=== PATIENT | female | born 2005 | race Asian ===

== ENCOUNTER 2025-04-07 19:44 | Emergency (ER) | payer OTHER, SELFPAY ==
[2025-04-07] VITALS (21 sets, daily range): BP systolic 104–120; BP diastolic 61–82; PULSE 69–102; RESP 11–32; TEMP 36.2; O2SAT 93–100; BMI 23.5
--- NOTE | 2025-04-07 19:58 | ED.ALLEREA ---
HPI - Allergic Reaction General Time Seen by Provider: 19:58 Date Seen: 04/07/25 Chief complaint: Allergic Reaction Stated complaint: Allergic reaction Time Seen by Provider: 04/07/25 19:57 Source: patient and RN notes reviewed Mode of arrival: ambulatory Limitations: no limitations History of Present Illness HPI narrative: This 19-year-old female with a known peanut allergy was eating a spring roll. It may have been cooked in not oil as she started to react. She felt like her tongue was swelling, became itchy. She did throw up in the car in route. The emesis was after the EpiPen. She took her EpiPen about 733. She did not notice any rash ever. The itchiness has gone. She is feeling lower abdominal pain and cramping. She is not feel like she is going to throw up anymore. She has had anaphylaxis before but nothing recent, no reactions for quite some time. She is no longer feeling itching, no difficulty breathing. Maybe some slight ongoing tongue swelling. Her biggest complaint is the lower abdominal cramping. MD complaint: allergic reaction Related Data Previous Rx's ?Medication ?Instructions ?Recorded prednisone 20 mg tablet 20 mg PO BID #6 tabs 04/07/25 Allergies Allergy/AdvReac Type Severity Reaction Status Date / Time peanut Allergy Severe Anaphylaxis Verified 04/07/25 19:51 Review of Systems Status of ROS Reports: 6 or more systems reviewed and unremarkable except as noted in History and below Exam Const: Vital Signs, click to edit/add: Vital Signs - 24 hr 04/07/25 19:51 04/07/25 20:02 04/07/25 20:15 Temperature 97.1 F L Pulse Rate 91 85 Pulse Rate [Pulse Oximeter] 96 Respiratory Rate 32 H Blood Pressure [Ri ght Upper Arm] 104/61 Pulse Oximetry 99 93 93 Oxygen Delivery Me thod Room Air 04/07/25 20:30 Temperature Pulse Rate 86 Pulse Rate [Pulse Oximeter] Respiratory Rate 26 H Blood Pressure [Ri ght Upper Arm] Pulse Oximetry 100 Oxygen Delivery Me thod This 19-year-old female seen exam room 5. She is alert, interactive, speech is normal, is able to speak in complete sentences but seems uncomfortable. She is lying on her side. Pupils equal round reactive, sclera clear, conjugate gaze, symmetrical facial function, no lip swelling noted. Tongue appears normal to me, oropharynx normal and certainly no hoarseness on speech. Neck supple, no adenopathy. Lungs are clear, good air entry, no wheezing or crackles, no accessory muscle use, no tachypnea. CV regular rate and rhythm, no murmur. Abdomen is soft, complaint of lower abdominal tenderness without rebound or guarding or masses. Skin visualized without any erythema, no hives. Documenting provider has reviewed patient's vital signs: yes Course Course ED Course: Patient could be experiencing cramping from having taken epinephrine or could still be cycle of allergic reaction. Will start an IV, have her on pulse oximetry and cardiac monitoring. Will start with IV Benadryl 25 mg, famotidine 20 mg IV, 40 mg IV Solu-Medrol and some IV fluids. I would like to watch this patient closely, see if she response to these medicines. If she is not responsive to these and has ongoing lower abdominal cramping, probably more likely from epinephrine administration. Would consider treating potentially with something like Toradol or even a bit of IV Ativan to see if that might help with lower intestinal cramping. She does not seem to be in any active anaphylaxis but will continue to monitor, make sure no rebound reaction. Reevaluation(s) Time of Reevaluation #1: 20:28 Reevaluation #1: Patient is checked on, she is feeling shaky, feels cold. Did get her some blankets. Her lower abdomen is still somewhat crampy but overall improved. We will continue to observe as she is overall improving. Time of Reevaluation #2: 20:57 Reevaluation #2: Nursing staff reports patient went to get up to the bathroom and just had another emesis. Will give her some Zofran. Time of Reevaluation #3: 21:08 Reevaluation #3: Patient is now feeling much better, wanting to drink. Reviewed that we do need to watch her, would advocate probably a 4 hour window since she did just recently have an emesis. Since the emesis, she is feeling back to baseline. It is possible that she did vomit the rest of the contents of the potential allergen. Patient states she does not need a refill of her EpiPen, she has another 1 at home and does have refills on the prescription. Vital Signs Vital signs: Initial Vital Signs Temperature 97.1 F L 04/07/25 19:51 Temperature Source Temporal Artery Scan 04/07/25 19:51 Pulse Rate 96 04/07/25 19:51 Respiratory Rate 32 H 04/07/25 19:51 Blood Pressure 104/61 04/07/25 19:51 Blood Pressure Mean 75 04/07/25 19:51 Blood Pressure Position Semi-Fowlers 04/07/25 19:51 Pulse Oximetry 99 04/07/25 19:51 Oxygen Delivery Method Room Air 04/07/25 19:51 Vital Signs Temperature 97.1 F L 04/07/25 19:51 Pulse Rate 96 04/07/25 19:51 Respiratory Rate 32 H 04/07/25 19:51 Blood Pressure 104/61 04/07/25 19:51 Pulse Oximetry 99 04/07/25 19:51 Oxygen Delivery Method Room Air 04/07/25 19:51 Temperature 97.1 F L 04/07/25 19:51 Pulse Rate 81 04/07/25 23:15 Respiratory Rate 22 04/07/25 23:15 Blood Pressure 111/72 04/07/25 23:01 Pulse Oximetry 97 04/07/25 23:15 Oxygen Delivery Method Room Air 04/07/25 19:51 Medications Administered Medications: Discontinued Medications Generic Name Dose Route Start Last Admin Trade Name Freq PRN Reason Stop Dose Admin Diphenhydramine HCl 25 mg 04/07/25 20:02 04/07/25 20:11 Diphenhydramine 50 Mg/Ml Inj IVP 04/07/25 20:03 25 mg ONCE ONE Administration Famotidine 20 mg 04/07/25 20:02 04/07/25 20:15 Famotidine 10 Mg/Ml Inj IVP 04/07/25 20:03 20 mg ONCE ONE Administration Sodium Chloride 1,000 mls @ 500 mls/hr 04/07/25 20:02 04/07/25 21:35 0.9 % Sodium Chloride 1000 Ml IV 04/07/25 22:01 Infused .Q2H [facility]OC[facility] Infusion Methylprednisolone Sodium Succinate 40 mg 04/07/25 20:02 04/07/25 20:19 Methylprednisolone Sod Succ 40 Mg/Ml IVP 04/07/25 20:03 40 mg ONCE ONE Administration Ondansetron HCl 4 mg 04/07/25 20:55 04/07/25 21:03 Ondansetron 2 Mg/Ml Inj IVP 04/07/25 20:56 4 mg ONCE ONE Administration Discharge Plan Discharge Clinical Impression: Allergic reaction Patient Disposition: Home, Self-Care Condition: Stable Instructions: General Allergic Reaction (ED) Additional Instructions: Start prednisone tomorrow and take for the next couple of days as prescribed. Can use Zyrtec or Claritin daily for the next 2-3 days. Make sure you refill your other EpiPen. If you have any concerns about recurrent allergic symptoms, please return to the ED for re-evaluation; return via ambulance if there are significant concerns. Activity Level: No Restrictions Prescriptions: New prednisone 20 mg tablet 20 mg PO BID Qty: 6 0RF Stand Alone Forms: [facility] Info Instructions
[2025-04-07] MEDS: 0.9 % SODIUM CHLORIDE 1000 ml 1,000 ML 500 ML IV (20:05)
[2025-04-07] MEDS: diphenhydrAMINE 50 MG/ML inj 25 MG IVP (20:11)
[2025-04-07] MEDS: FAMOTIDINE 10 MG/ML inj 20 MG IVP (20:15)
[2025-04-07] MEDS: METHYLPREDNISOLONE SOD SUCC 40 MG/ML IVP (20:19)
[2025-04-07] MEDS: ONDANSETRON 2 MG/ML inj 4 MG IVP (21:03)
== END 2025-04-07 23:28 | disposition home or self-care (01) ==
LOC: ED 21:31
PROVIDERS: Emergency Provider Family Medicine
DX: T78.1XXA Other adverse food reactions, not elsewhere classified, initial encounter (principal); L29.9 Pruritus, unspecified; R11.10 Vomiting, unspecified
CPT/HCPCS: 94761; 96361; 96374; 96375; 99284; J1200; J1308; J2405; J2919; J7030